=== PATIENT | female | born 1960 | race Caucasian/White ===

== ENCOUNTER → 2021-06-12 | Day surgery (SDC) | payer OTHER ==
[~2021-06-12] VITALS: Ht 170.2 cm; Wt 86.2 kg
[~2021-06-12] MED LIST: HAIR, SKIN & N1 EACH PO; LIPITOR 10MG TA10 MG PO; MELATONIN5 M2 PO; MELOXICAM15 MG PO; MIRALAX17 GM PO; NEXIUM40 MG PO; NORCO 5-325 TA1 EACH PO; VITAMIN D2000 UNI1 PO
== END | disposition home or self-care (01) ==
LOC: FAS 05:43
DX: M75.01 Adhesive capsulitis of right shoulder (principal); M24.611 Ankylosis, right shoulder; M25.511 Pain in right shoulder
CPT/HCPCS: 97110; 97161; J2250; J2704; J2795; J7120